=== PATIENT | male | born 1965 | race Caucasian/White ===

== ENCOUNTER 2018-09-13 09:03 | Inpatient (IN) | payer MEDICAID ==
[2018-09-13] VITALS (23 sets, daily range): BP systolic 80–127; BP diastolic 54–82; BMI 30.2
[~2018-09-13] VITALS: Ht 188 cm; Wt 98.2 kg
[2018-09-13] MEDS ORDERED: NAPROSYN500 MG PO (09:11)
[2018-09-13] MEDS ORDERED: COREG6.25 MG PO (09:11)
[2018-09-13 09:28] LABS: BASOPHILS 0.3 % (0-2); EOSINOPHILS 0.2 % (0-7); HEMATOCRIT 22.1 % (42.0-54.0); IMMATURE GRANULOCYTES 1.7 % (0-5); LYMPHOCYTES 14.6 % (15-50); MCH 29.3 pg (26.0-34.0); MCHC 32.1 g/dL (31.0-37.0); MCV 91.3 fL (80.0-100.0); MEAN PLATELET VOLUME 8.4 fL (7.4-10.4); MONOCYTES 5.3 % (2-11); NEUTROPHILS 77.9 % (40-80); PLATELET COUNT 511 10x3/uL (130-400); RBC 2.42 10x6/uL (4.20-6.10); RDW 12.8 % (11.5-14.5); WBC 12.7 10x3/uL (4.8-10.8)
[2018-09-13 09:31] LABS: HEMOGLOBIN 7.1 g/dL (13.5-17.5)
[2018-09-13 09:42] LABS: ALBUMIN 2.2 g/dL (3.4-5.0); ALKALINE PHOSPHATASE 49 U/L (46-116); ALT (SGPT) 18 U/L (10-68); BILIRUBIN - TOTAL 0.15 mg/dL (0.2-1.3); CALC OSMOLALITY 291 mosm/kg (275-300); CALCIUM 7.6 mg/dL (8.5-10.1); CARBON DIOXIDE 25.4 mmol/L (21.0-32.0); CHLORIDE - SERUM 108 mmol/L (98-107); CREATININE - SERUM 0.7 mg/dL (0.6-1.3); GLUCOSE 111 mg/dL (74-106); POTASSIUM - SERUM 4.8 mmol/L (3.5-5.1); PROTEIN - SERUM 5.7 g/dL (6.4-8.2); SODIUM 141 mmol/L (136-145); UREA NITROGEN 40 mg/dL (7-18); eGFR NON AFRICAN AMERICAN > 90 mL/min (90-120)
[2018-09-13 09:54] LABS: APTT 27.4 SECONDS (22.8-39.4); INR 1.19 (0.85-1.17); PROTIME 14.6 SECONDS (11.6-15.0)
--- NOTE | 2018-09-13 10:01 | NUR ---
PT TO CT VIA STRETCHER IN STABLE CONDITION.
--- NOTE | 2018-09-13 10:14 | NUR ---
PT RETURNED FROM CT VIA STRETCHER IN STABLE CONDITION.
--- NOTE | 2018-09-13 11:50 | NUR ---
PT TO RESTROOM VIA WHEELCHAIR, REPORTS THAT STOOL IS BLACK, PT DID NOT SAVE SAMPLE AND FLUSHED COMMODE.
--- NOTE | 2018-09-13 12:26 | MORECARE ---
CASE MANAGEMENT DISCHARGE SUMMARY PATIENT: PARVEZ DOUGLAS UNIT: [id number] ADM DATE: 09/13/18 AGE: 52 : 69 SEX: M ROOM/BED: D.2307 AUTHOR: LANETTE BUCIO PHYSICIAN: REFERRING PHYSICIAN: ANTHONY JANSEN MD DATE OF SERVICE: 09/13/18 Discharge Plan Patient Name: PARVEZ DOUGLAS [facility] [facility] 1965 Planned Disposition: Anticipated Discharge Date: Discharge Date: Expected LOS: Initial Reviewer: [email or web address] Initial Review Date: 09/13/2018 Generated: 09/13/18 1:26 pm Patient Name: PARVEZ DOUGLAS Page [id number] at 1226 All edits/amendments must be made on the electronic document DICTATION DATE: 09/13/18 1226 DATABASE REPORT WRITER: DIOGENES 09/13/18 1226 RPT#: [id number] DC DATE: STATUS: ADM IN [facility] [address] [place] [address] END OF REPORT
--- NOTE | 2018-09-13 14:19 | NUR ---
LATE ENTRY 1256. PT ARRIVED VIA STRETCHER WITH GUARD AND ER STAFF. PRBC INFUSING. NO S/S OF ACUTE DISTRESS. CL IN PLACE.
--- NOTE | 2018-09-13 14:38 | NUR ---
1430 ASSISTED PT TO BSC. 400 ML OF DARK TO MAROON COLORED RUNNY STOOL NOTED. NO S/S OF ACUTE DISTRESS. PRBC INFUSING. CL IN PLACE.
--- NOTE | 2018-09-13 16:45 | NUR ---
PT RESTING IN BED WATCHING TV. PRBC INFUSING. NO S/S OF ACUTE DISTRESS. CL IN PLACE.
--- NOTE | 2018-09-13 18:37 | NUR ---
LATE ENTRY TO 1700. NG TUBE DROPPED PER DR MARQUES ORDER.PLACEMENT CHECKED X2 NURSES. AUSULTATED. 10 ML OF GREEN BILE NOTED. NG TUBE DC. NO S/S OF ACUTE DISTRESS. CL IN PLACE.
[2018-09-13 18:57] LABS: BASOPHILS 0.2 % (0-2); EOSINOPHILS 0.5 % (0-7); IMMATURE GRANULOCYTES 0.9 % (0-5); LYMPHOCYTES 33.7 % (15-50); MCH 28.3 pg (26.0-34.0); MCHC 31.6 g/dL (31.0-37.0); MCV 89.8 fL (80.0-100.0); MEAN PLATELET VOLUME 8.6 fL (7.4-10.4); MONOCYTES 8.5 % (2-11); NEUTROPHILS 56.2 % (40-80); RDW 13.4 % (11.5-14.5)
--- NOTE | 2018-09-13 18:58 | NUR ---
PT BEING PREPPED FOR EGD WITH TIVA. NO S/S OF ACUYTE DISTRESS. GUARD OUTSIDE DOOR. DR MARQUES AND ANDERSESIA IN WITH PT. CL IN PLACE.
[2018-09-13 19:18] LABS: HEMATOCRIT 39.6 % (42.0-54.0); HEMOGLOBIN 12.5 g/dL (13.5-17.5); PLATELET COUNT 269 10x3/uL (130-400); RBC 4.41 10x6/uL (4.20-6.10); WBC 6.4 10x3/uL (4.8-10.8)
--- NOTE | 2018-09-13 19:20 | NUR ---
DR MARQUES AND ANESTHESIA AT BEDSIDE - EGD W/TIVA AT BEDSIDE
--- NOTE | 2018-09-13 19:40 | NUR ---
DR. MARQUES - REPORTED FINDINGS, NEW ORDERS RECEIVED PATIENT REQUESTING FOOD, PATIENT EDUCATED ON CLEAR LIQUID DIET STATUS POST PROCEDURE -S CPOC
--- NOTE | 2018-09-13 21:15 | NUR ---
PATIENT RECEIVED ICE CHIPS PER REQUEST. TOLERATED WELL, VSS CPOC
[2018-09-14] VITALS (23 sets, daily range): BP systolic 98–131; BP diastolic 62–90
--- NOTE | 2018-09-14 01:45 | NUR ---
PT RESTING COMFORTABLY DENIES NEEDS
[2018-09-14 02:45] LABS: BASOPHILS 0.2 % (0-2); IMMATURE GRANULOCYTES 0.7 % (0-5); MCH 29.9 pg (26.0-34.0); MCHC 33.5 g/dL (31.0-37.0); MCV 89.4 fL (80.0-100.0); MEAN PLATELET VOLUME 8.3 fL (7.4-10.4); MONOCYTES 10.7 % (2-11); NEUTROPHILS 54.4 % (40-80); RDW 13.7 % (11.5-14.5)
[2018-09-14 02:49] LABS: RBC 2.74 10x6/uL (4.20-6.10); WBC 8.4 10x3/uL (4.8-10.8)
[2018-09-14 02:50] LABS: HEMATOCRIT 24.5 % (42.0-54.0); HEMOGLOBIN 8.2 g/dL (13.5-17.5); PLATELET COUNT 388 10x3/uL (130-400)
[2018-09-14 02:56] LABS: ALBUMIN 2.2 g/dL (3.4-5.0); ALKALINE PHOSPHATASE 39 U/L (46-116); ALT (SGPT) 16 U/L (10-68); BILIRUBIN - TOTAL 0.24 mg/dL (0.2-1.3); CALCIUM 7.8 mg/dL (8.5-10.1); CARBON DIOXIDE 24.1 mmol/L (21.0-32.0); CHLORIDE - SERUM 111 mmol/L (98-107); CREATININE - SERUM 0.8 mg/dL (0.6-1.3); GLUCOSE 89 mg/dL (74-106); PROTEIN - SERUM 5.2 g/dL (6.4-8.2); SODIUM 140 mmol/L (136-145); eGFR NON AFRICAN AMERICAN > 90 mL/min (90-120)
[2018-09-14 03:04] LABS: CALC OSMOLALITY 282 mosm/kg (275-300); POTASSIUM - SERUM 3.6 mmol/L (3.5-5.1); UREA NITROGEN 26 mg/dL (7-18)
--- NOTE | 2018-09-14 03:10 | NUR ---
REASSESSMENT COMPLETED SEE FLOWSHEET
--- NOTE | 2018-09-14 04:58 | NUR ---
PT RESTING COMFORTABLY - EYES CLOSED EVEN RISE AND FALL OF CHEST, NO APPARENT SIGN OF DISTRESS - VSS CPOC
--- NOTE | 2018-09-14 07:11 | NUR ---
CALLED DR MARQUES REGARDING LAB VALUES, NEW ORDERS RECEIEVED.
--- NOTE | 2018-09-14 07:49 | NUR ---
LATE ENTRY 0700. PT RESTING IN BED. GUARD AT BEDSIDE. EATING FULL LIQUID DIET. NO S/S OF ACUTE DISTRESS. CL IN PLACE.
--- NOTE | 2018-09-14 10:02 | NUR ---
PRBC INFUSING. NO S/S OF ACUTE DISTRESS. GUARD AT BS. CL IN PLACE.
--- NOTE | 2018-09-14 11:06 | NUR ---
PRBC INFUSING. NO S/S OF ACUTE DISTRESS. CL IN PLACE.
[2018-09-14 12:48] LABS: BASOPHILS 0.4 % (0-2); EOSINOPHILS 0.9 % (0-7); HEMATOCRIT 28.1 % (42.0-54.0); HEMOGLOBIN 9.5 g/dL (13.5-17.5); IMMATURE GRANULOCYTES 0.7 % (0-5); LYMPHOCYTES 26.1 % (15-50); MCH 29.7 pg (26.0-34.0); MCHC 33.8 g/dL (31.0-37.0); MCV 87.8 fL (80.0-100.0); MEAN PLATELET VOLUME 8.3 fL (7.4-10.4); MONOCYTES 7.6 % (2-11); NEUTROPHILS 64.3 % (40-80); PLATELET COUNT 398 10x3/uL (130-400); RDW 13.7 % (11.5-14.5); WBC 8.5 10x3/uL (4.8-10.8)
--- NOTE | 2018-09-14 15:00 | NUR ---
PT USED BSC. DC IV WITH TIP INTACT.NO REDDNESS OR SWELLING NOTED. NO S.S OF ACUTE DISTRESS. CL IN PLACE.
--- NOTE | 2018-09-14 17:00 | NUR ---
EMPTIED X1 SMALL 100 ML DARK BROWN BLACK RUNNY BM. NO S/S OF ACUTE DISTRESS. CL IN PLACE. GUARD AT BEDSIDE.
[2018-09-14 17:05] LABS: HEMATOCRIT 28.2 % (42.0-54.0); HEMOGLOBIN 9.3 g/dL (13.5-17.5)
--- NOTE | 2018-09-14 18:24 | NUR ---
LATER ENTRY 1300. PT RESTING IN BED WATCHING TV. GUARD AT BEDSIDE. CL IN PLACE.
--- NOTE | 2018-09-14 18:36 | NUR ---
PT RESTING IN BED. NO S/S OF ACUTE DISTRESS. CL IN PLACE. GUARD AT BEDSIDE.
--- NOTE | 2018-09-14 19:02 | NUR ---
SHIFT ASSESSMENT COMPLETED SEE FLOWSHEET - VSS CPOC PATIENT DENIES NEEDS AT THIS TIME
--- NOTE | 2018-09-14 20:57 | NUR ---
PATIENT RECEIVED CHOCOLATE ICE CREAM PER REQUEST. HS MEDS RECEIVED SEE EMAR FOR ADMINISTRATION. DENIES FURTHER NEEDS
[2018-09-15] VITALS (13 sets, daily range): BP systolic 94–143; BP diastolic 64–91; Ht 188 cm; Wt 98.2 kg
--- NOTE | 2018-09-15 01:45 | NUR ---
THIS NURSE IV START TO RIGHT FOREARM.
[2018-09-15 02:51] LABS: BASOPHILS 0.2 % (0-2); EOSINOPHILS 2.1 % (0-7); HEMATOCRIT 26.7 % (42.0-54.0); IMMATURE GRANULOCYTES 0.6 % (0-5); LYMPHOCYTES 39.9 % (15-50); MCH 29.5 pg (26.0-34.0); MCHC 33.7 g/dL (31.0-37.0); MCV 87.5 fL (80.0-100.0); MEAN PLATELET VOLUME 8.2 fL (7.4-10.4); MONOCYTES 9.2 % (2-11); PLATELET COUNT 359 10x3/uL (130-400); RBC 3.05 10x6/uL (4.20-6.10)
[2018-09-15 03:04] LABS: CALC OSMOLALITY 278 mosm/kg (275-300); CALCIUM 8.2 mg/dL (8.5-10.1); CARBON DIOXIDE 27.1 mmol/L (21.0-32.0); CHLORIDE - SERUM 107 mmol/L (98-107); CREATININE - SERUM 0.6 mg/dL (0.6-1.3); GLUCOSE 87 mg/dL (74-106); POTASSIUM - SERUM 3.4 mmol/L (3.5-5.1); SODIUM 141 mmol/L (136-145); eGFR NON AFRICAN AMERICAN > 90 mL/min (90-120)
[2018-09-15 03:06] LABS: UREA NITROGEN 10 mg/dL (7-18)
--- NOTE | 2018-09-15 03:15 | NUR ---
REASSESSMENT COMPLETED SEE FLOWSHEET
--- NOTE | 2018-09-15 04:22 | NUR ---
PATIENT RESTING COMFORTABLY DENIES NEEDS
--- NOTE | 2018-09-15 04:35 | NUR ---
PATIENT RESTING COMFORTABLY
--- NOTE | 2018-09-15 05:00 | NUR ---
NS TUBING CHANGED PER PROTOCOL. GUARD AT BEDSIDE, PATIENT RESTING COMFORTABLY NO APPARENT DISTRESS - VSS CPOC
--- NOTE | 2018-09-15 07:00 | NUR ---
REPORT RECIEVED, SHIFT ASSESSMENT COMPLETE, PT IS ALERT AND ORIENTED, DENIES ANY PAIN AT THIS TIME, ALL PPP, VSS, CALL LIGHT IN REACH
--- NOTE | 2018-09-15 09:00 | NUR ---
PT RESTING COMFORTABLY AT THIS TIME, WILL CON'T TO MONITOR
[2018-09-15 09:48] LABS: HEMATOCRIT 30.4 % (42.0-54.0); HEMOGLOBIN 10.2 g/dL (13.5-17.5)
--- NOTE | 2018-09-15 11:45 | NUR ---
REPORT CALLED TO AUDREY ON MED 3
--- NOTE | 2018-09-15 12:05 | NUR ---
ARRIVE TO ROOM VIA BED FROM ICU. REPORT FROM AMANDA MEADOWS. ACCOMPANIED BY GUARD. LOWER EXTREMITIES BILATERALLY SHACKLED TO BED. IV INFUSING RT FA PROTONIX @ 10 AND NS @ 75. DENIES ANY NEEDS. PHONE REMOVED FROM ROOM. TWO SIDERAILS UP. CALL LIGHT IN REACH. CONTINUE PLAN OF CARE AND SAFETY PRECAUTIONS.
--- NOTE | 2018-09-15 18:31 | NUR ---
ALERT AND ORIENTED X4. RESTING IN BED. GUARD AT BEDSIDE. LOWER EXTREMITIES BILATERAL SHACKLED TO BED. DENIES ANY NEEDS. PREPARE SHIFT CHANGE REPORT. CONTINUE PLAN OF CARE AND SAFETY PRECAUTIONS. SINUS RHYTHM ON TELEMETRY.
[2018-09-15 19:03] LABS: HEMATOCRIT 28.7 % (42.0-54.0); HEMOGLOBIN 9.6 g/dL (13.5-17.5)
--- NOTE | 2018-09-15 20:29 | MORECARE ---
CASE MANAGEMENT DISCHARGE SUMMARY PATIENT: PARVEZ DOUGLAS UNIT: [id number] ADM DATE: 09/13/18 AGE: 52 : 69 SEX: M ROOM/BED: D.1213 AUTHOR: LANETTE BUCIO PHYSICIAN: REFERRING PHYSICIAN: ANTHONY JNASEN MD DATE OF SERVICE: 09/15/18 Discharge Plan Patient Name: PARVEZ DOUGLAS [facility] [facility] 1965 Planned Disposition: Other Type of Facility Anticipated Discharge Date: Discharge Date: Expected LOS: Initial Reviewer: [email or web address] Initial Review Date: 09/13/2018 Generated: 09/15/18 9:29 pm Last DP export: 09/13/18 11:26 am Patient Name: PARVEZ DOUGLAS Page [id number] at 2028 All edits/amendments must be made on the electronic document DICTATION DATE: 09/15/182028 MASS SPECTROSCOPIST: DIOGENES 09/15/182028 RPT#: [id number] DC DATE: STATUS: ADM IN [facility] [address] [place] [address] END OF REPORT
--- NOTE | 2018-09-15 20:30 | NUR ---
PT PM MEDICATIONS ADMINISTERED. PT DENIES NEEDS, GUARD AT BEDSIDE. WCTM.
--- NOTE | 2018-09-15 20:36 | MORECARE ---
CASE MANAGEMENT DISCHARGE SUMMARY PATIENT: PARVEZ DOUGLAS UNIT: [id number] ADM DATE: 09/13/18 AGE: 52 : 69 SEX: M ROOM/BED: D.1213 AUTHOR: LANETTE BUCIO PHYSICIAN: REFERRING PHYSICIAN: ANTHONY JANSEN MD DATE OF SERVICE: 09/15/18 Discharge Plan Patient Name: PARVEZ DOUGLAS [facility] [facility] 1965 Planned Disposition: Other Type of Facility Anticipated Discharge Date: Discharge Date: Expected LOS: Initial Reviewer: [email or web address] Initial Review Date: 09/13/2018 Generated: 09/15/18 9:35 pm Comments DCP- Discharge Planning Updated by [email or web address]: Starla Douglas on 09/15/18 7:[address] PATIENT WAS ADMITTED FROM [facility]. PLAN TO RETURN TO [facility] VIA CORRECTIONAL VAN. Last DP export: 09/15/18 7:29 pm Patient Name: PARVEZ DOUGLAS Page 16049 at 2036 All edits/amendments must be made on the electronic document DICTATION DATE: 09/15/182034 TAKER DOWN: DIOGENES 09/15/182034 RPT#: [id number] DC DATE: STATUS: ADM IN [facility] [address] [place] [address] END OF REPORT
[2018-09-15 21:20] LABS: HEMATOCRIT 29.6 % (42.0-54.0); HEMOGLOBIN 9.8 g/dL (13.5-17.5)
--- NOTE | 2018-09-16 03:22 | NUR ---
PT RESTING, EYES CLOSED. BED LOW. CL IN REACH. WCTM.
[2018-09-16 04:30] VITALS: BP 118/70
[2018-09-16 08:14] LABS: HEMATOCRIT 32.3 % (42.0-54.0); HEMOGLOBIN 10.8 g/dL (13.5-17.5)
[2018-09-16 09:23] VITALS: BP 129/63
[2018-09-16 12:30] VITALS: BP 92/57
--- NOTE | 2018-09-16 14:37 | MORECARE ---
CASE MANAGEMENT DISCHARGE SUMMARY PATIENT: PARVEZ DOUGLAS UNIT: [id number] ADM DATE: 09/13/18 AGE: 52 : 69 SEX: M ROOM/BED: D.1213 AUTHOR: LANETTE BUCIO PHYSICIAN: REFERRING PHYSICIAN: ANTHONY JANSEN MD DATE OF SERVICE: 09/16/18 Discharge Plan Patient Name: PARVEZ DOUGLAS [facility] [facility] 1965 Planned Disposition: Other Type of Facility Anticipated Discharge Date: Discharge Date: Expected LOS: Initial Reviewer: [email or web address] Initial Review Date: 09/13/2018 Generated: 09/16/18 3:36 pm Comments DCP- Discharge Planning Updated by [email or web address]: Susannah Frazier on 09/16/18 1:[address] Spoke with Annalee with ADC about potential discharge back to snf when released by GI. Faxed updated records as requested. CM will continue to follow and assist as needed with discharge planning / needs. DCP- Discharge Planning Updated by [email or web address]: Starla Douglas on 09/15/18 7:[address] PATIENT WAS ADMITTED FROM [facility]. PLAN TO RETURN TO [facility] VIA CORRECTIONAL VAN. Last DP export: 09/15/18 7:36 pm Patient Name: PARVEZ DOUGLAS Page [id number] at 1437 All edits/amendments must be made on the electronic document DICTATION DATE: 09/16/18 1436 MANAGER ORDER: DIOGENES 09/16/18 1436 RPT#: [id number] DC DATE: STATUS: ADM IN [facility] [address] [place] [address] END OF REPORT
[2018-09-16 16:15] VITALS: BP 114/75
--- NOTE | 2018-09-16 19:22 | NUR ---
PT'S CALL LIGHT GOING OFF, PT WANTED URINAL TO BE EMPTIED. EMPTIED 200CC OF YELLOW URINE. PT A/O X4, RESP EVEN AND NONLABORED ON RA. RT FA INFUSING NS AT @ 75CC/HR. PT REQUESTING SOME ICE CREAM, WILL PROIVIDE PT ICE CREAM. FDC GACATHIE AT BEDSIDE, CALL LIGHT IN REACH, NAD NOTED, WILL CONTINUE TO MONITOR.
[2018-09-16 20:00] VITALS: BP 115/81
--- NOTE | 2018-09-16 20:12 | NUR ---
NIGHT TIMES MEDICATIONS GIVEN AT THIS TIME. PT IN BED, WATCHING TV, DENIES ANY NEEDS AT THIS TIME. CALL LIGHT IN REACH, GUARD AT BEDSIDE, NAD NOTED, WILL CONTINUE TO MONITOR.
[2018-09-16 23:57] VITALS: BP 115/77
--- NOTE | 2018-09-17 03:10 | NUR ---
PT RESTING COMFORTABLY IN BED WITH EYES CLOSED. LAY MIDWIFE AT BEDSIDE, NAD NOTED, WILL CONTINUE TO MONITOR.
[2018-09-17 04:30] VITALS: BP 129/9
--- NOTE | 2018-09-17 07:15 | NUR ---
REC'D IN BED AWAKE AND ALERT. RESP EVEN AND UNLABORED WITH NO DISTRESS NOTED. CAN EXPRESS NEEDS AND WANTS. NO C/O NOTED OR VOICED. ASSESMENT COMPLETED.C/L IN REACH AT BEDSIDE.
[2018-09-17 08:02] LABS: BASOPHILS 0.1 % (0-2); EOSINOPHILS 1.6 % (0-7); HEMATOCRIT 31.4 % (42.0-54.0); HEMOGLOBIN 10.5 g/dL (13.5-17.5); IMMATURE GRANULOCYTES 0.4 % (0-5); LYMPHOCYTES 17.1 % (15-50); MCHC 33.4 g/dL (31.0-37.0); MCV 89.7 fL (80.0-100.0); MEAN PLATELET VOLUME 8.6 fL (7.4-10.4); MONOCYTES 8.2 % (2-11); NEUTROPHILS 72.6 % (40-80); PLATELET COUNT 387 10x3/uL (130-400); RDW 14.3 % (11.5-14.5); WBC 13.4 10x3/uL (4.8-10.8)
[2018-09-17 09:12] VITALS: BP 132/88
[2018-09-17 12:53] VITALS: BP 96/62
[2018-09-17 18:22] VITALS: BP 109/69
--- NOTE | 2018-09-17 18:50 | NUR ---
I AGREE WITH THE PROTECTIVE SERVICES CASE WORKER CHARTING
[2018-09-17 20:00] VITALS: BP 107/72
--- NOTE | 2018-09-17 20:10 | NUR ---
PT LYING IN BED. CALL LIGHT IN REACH. DENIES NEEDS OR PAIN AT THIS TIME. BED IN LOW. SIDE RAILS X2. PAN OPERATOR IN ROOM. LUNGS CLEAR. A/O X4. NS RUNNING AT 75ML/HR. RESP EVEN AND UNLABORED. WILL CONTINUE TO MONITOR. TAKES MEDS WHOLE.
[2018-09-18] VITALS: BP 100/62
--- NOTE | 2018-09-18 04:14 | NUR ---
PT RESTING QUIETLY. CALL LIGHT IN REACH. NO SIGNS OF DISTRESS OR PAIN. WCTM GUARD IN ROOM.
[2018-09-18 05:00] VITALS: BP 130/88
[2018-09-18 07:10] LABS: BASOPHILS 0.2 % (0-2); EOSINOPHILS 1.8 % (0-7); HEMATOCRIT 29.9 % (42.0-54.0); IMMATURE GRANULOCYTES 0.6 % (0-5); LYMPHOCYTES 23.8 % (15-50); MCH 29.9 pg (26.0-34.0); MCHC 33.4 g/dL (31.0-37.0); MCV 89.3 fL (80.0-100.0); MEAN PLATELET VOLUME 8.3 fL (7.4-10.4); MONOCYTES 10.5 % (2-11); NEUTROPHILS 63.1 % (40-80); PLATELET COUNT 357 10x3/uL (130-400); RBC 3.35 10x6/uL (4.20-6.10); RDW 14.1 % (11.5-14.5); WBC 10.7 10x3/uL (4.8-10.8)
[2018-09-18 07:19] LABS: CALC OSMOLALITY 277 mosm/kg (275-300); CALCIUM 8.5 mg/dL (8.5-10.1); CARBON DIOXIDE 28.2 mmol/L (21.0-32.0); CHLORIDE - SERUM 104 mmol/L (98-107); CREATININE - SERUM 0.7 mg/dL (0.6-1.3); GLUCOSE 99 mg/dL (74-106); POTASSIUM - SERUM 3.8 mmol/L (3.5-5.1); SODIUM 139 mmol/L (136-145); UREA NITROGEN 12 mg/dL (7-18); eGFR NON AFRICAN AMERICAN > 90 mL/min (90-120)
[2018-09-18 08:00] VITALS: BP 94/53
[2018-09-18 14:16] VITALS: BP 110/46
[2018-09-18 14:47] LABS: APPEARANCE CLEAR (CLEAR); BILIRUBIN NEGATIVE (NEGATIVE); COLOR STRAW (YELLOW); GLUCOSE NEGATIVE (NEGATIVE); KETONE NEGATIVE (NEGATIVE); NITRITE NEGATIVE (NEGATIVE); PROTEIN NEGATIVE (NEGATIVE); SPECIFIC GRAVITY 1.015 (1.005-1.020); UROBILINOGEN NORMAL (NORMAL)
[2018-09-18 16:00] VITALS: BP 120/69
--- NOTE | 2018-09-18 20:10 | NUR ---
PT SITTING UP IN BED. CALL LIGHT IN REACH. BED IN LOW. SIDE RAILS X2. GUARD IN ROOM. BOWEL ACTIVE X4. LUNGS CLEAR. A/O X4. PT DENIES NEEDS OR PAIN AT THIS TIME. TAKES MEDS WHOLE. USES URINAL. WILL CONTINUE TO MONITOR.
[2018-09-18 20:53] VITALS: BP 117/80
[2018-09-19 01:14] VITALS: BP 101/70
--- NOTE | 2018-09-19 02:50 | NUR ---
PT RESTING QUIETLY. CALL LIGHT IN REACH. NO SIGNS OF DISTRESS OR PAIN. GUARD IN ROOM. TM
[2018-09-19 06:37] VITALS: BP 113/73
[2018-09-19 07:02] LABS: HEMATOCRIT 29.5 % (42.0-54.0); HEMOGLOBIN 10.2 g/dL (13.5-17.5); LYMPHOCYTES 23.9 % (15-50); MCH 31.3 pg (26.0-34.0); MCHC 34.6 g/dL (31.0-37.0); MCV 90.5 fL (80.0-100.0); MEAN PLATELET VOLUME 8.3 fL (7.4-10.4); NEUTROPHILS 67.5 % (40-80); PLATELET COUNT 416 10x3/uL (130-400); RBC 3.26 10x6/uL (4.20-6.10); RDW 13.8 % (11.5-14.5); WBC 10.7 10x3/uL (4.8-10.8)
[2018-09-19 07:10] LABS: CALC OSMOLALITY 281 mosm/kg (275-300); CALCIUM 8.5 mg/dL (8.5-10.1); CARBON DIOXIDE 26.3 mmol/L (21.0-32.0); CHLORIDE - SERUM 105 mmol/L (98-107); CREATININE - SERUM 0.6 mg/dL (0.6-1.3); GLUCOSE 120 mg/dL (74-106); POTASSIUM - SERUM 3.3 mmol/L (3.5-5.1); SODIUM 141 mmol/L (136-145); UREA NITROGEN 12 mg/dL (7-18); eGFR NON AFRICAN AMERICAN > 90 mL/min (90-120)
--- NOTE | 2018-09-19 07:30 | NUR ---
ASSESSMENT COMPLETE. IV TO R FA PATENT. SWELLING NOTED TO RIGHT ELBOW. PROSPECT MANAGER SHOWING SR 62 PER TECH. GUARD AT BEDSIDE. DENIES ANY NEEDS AT THIS TIME.
[2018-09-19 07:56] VITALS: BP 104/71
[2018-09-19] MEDS ORDERED: ZYLOPRIM300 MG PO (08:35)
[2018-09-19] MEDS ORDERED: PROTONIX40 MG PO (08:35)
[2018-09-19] MEDS ORDERED: CARAFATE1 G PO (08:35)
[2018-09-19] MEDS ORDERED: COLCRYS0.6 MG PO (08:36)
[2018-09-19 12:00] VITALS: BP 100/76
--- NOTE | 2018-09-19 12:10 | NUR ---
REPORT CALLED TO GABY AT [facility].
--- NOTE | 2018-09-19 12:14 | NUR ---
IV REMOVED. CATHETER TIP INTACT. MINE INSPECTOR FEDERAL REMOVED. AWAITING DR TINSLEY TO HAVE DOC TO DOC TALK WITH DR COYNE AT RETIREMENT.
--- NOTE | 2018-09-19 13:45 | NUR ---
DISCHARGE TEACHING GIVEN TO PATIENT. VOICED UNDERSTANDING. AWAITING TRANSPORT.
--- NOTE | 2018-09-19 14:40 | NUR ---
[facility] WITH [facility]. ESCORTED TO VEHICLE BY WC WITH BELONGINGS.
[2018-09-19 14:53] LABS: ERYTHROCYTE SEDIMENTATION RATE 33 mm/hr (0-20)
[2018-09-19 19:06] LABS: NEUT - BF 10 %
[2018-09-19 19:07] LABS: EOS BF 2 %; MACROPHAGES BF 10 %; MESOTHELIALS BF 2 %
--- NOTE | 2018-09-22 09:25 | MORECARE ---
CASE MANAGEMENT DISCHARGE SUMMARY PATIENT: PARVEZ DOUGLAS UNIT: [id number] ADM DATE: 09/13/18 AGE: 52 : 69 SEX: M ROOM/BED: D.1213 AUTHOR: LANETTE BUCIO PHYSICIAN: REFERRING PHYSICIAN: ANTHONY JANSEN MD DATE OF SERVICE: 09/22/18 Discharge Plan Patient Name: PARVEZ DOUGLAS [facility] [facility] 1965 Planned Disposition: Other Type of Facility Anticipated Discharge Date: Discharge Date: 09/19/2018 Expected LOS: Initial Reviewer: [email or web address] Initial Review Date: 09/13/2018 Generated: 09/22/18 10:24 am Comments DCP- Discharge Planning Updated by [email or web address]: Susannah Frazier on 09/16/18 1:[address] Spoke with Annalee with ADC about potential discharge back to [facility] when released by GI. Faxed updated records as requested. CM will continue to follow and assist as needed with discharge planning / needs. DCP- Discharge Planning Updated by [email or web address]: Starla Douglas on 09/15/18 7:[address] [facility]. PLAN TO RETURN TO [facility] VIA CORRECTIONAL VAN. Last DP export: 09/16/18 1:37 pm Patient Name: PARVEZ DOUGLAS Page [phone] at 0925 All edits/amendments must be made on the electronic document DICTATION DATE: 09/22/18923 MONITORING AND EVALUATION ADVISOR: DIOGENES 09/22/18923 RPT#: [id number] DC DATE:09/19/18 STATUS: DIS IN [facility] [address] [facility] [place] [address] END OF REPORT
== END 2018-09-19 14:40 | DRG 378 ==
LOC: D.ER 09:03 → D.M3 11:20 → D.EDHOLD 11:20 → D.ICU 11:20 → D.M3 09-15 11:45
PROVIDERS: Family Medicine; Internal Medicine Gastroenterology; Internal Medicine Nephrology; Orthopaedic Surgery; ADMIT Family Medicine; ATTEND Family Medicine
PROC: 0DB68ZX Excision of Stomach, Via Natural or Artificial Opening Endoscopic, Diagnostic (ICD-10-PCS; principal; 2018-09-13 18:30)
PROC: 0R9L3ZZ Drainage of Right Elbow Joint, Percutaneous Approach (ICD-10-PCS; 2018-09-19)
DX: K25.4 Chronic or unspecified gastric ulcer with hemorrhage (principal); D62 Acute posthemorrhagic anemia; K44.9 Diaphragmatic hernia without obstruction or gangrene; K31.4 Gastric diverticulum; N28.89 Other specified disorders of kidney and ureter; R55 Syncope and collapse; I95.9 Hypotension, unspecified; M10.9 Gout, unspecified; I10 Essential (primary) hypertension; M70.21 Olecranon bursitis, right elbow